=== PATIENT | male | born 1995 | race Caucasian/White ===

== ENCOUNTER 2018-12-06 11:04 | Emergency (ER) | payer OTHER ==
[~2018-12-06] VITALS: Ht 165.1 cm; Wt 70.3 kg
[2018-12-06] MEDS ORDERED: AMOX-CLAV 875-1 EACH PO (16:11)
[2018-12-06] MEDS ORDERED: IBUPROFEN600 MG PO (16:11)
[2018-12-06] MEDS ORDERED: INTESTINEX680 M1 PO (16:11)
== END 2018-12-06 16:49 ==
LOC: ER 11:04
DX: J03.80 Acute tonsillitis due to other specified organisms (principal)